=== PATIENT | male | born 1935 | race Caucasian/White ===

== ENCOUNTER 2017-09-25 13:33 | Emergency (ER) | payer MEDICARE ==
--- NOTE | 2017-09-25 13:57 | Emergency Department Record ---
History of Present Illness - General Chief complaint: Male Urogenital Problem Stated complaint: UNABLE TO URINATE Time Seen by Provider: 09/25/17 13:44 Source: Patient, Family Mode of Arrival: Ambulatory Limitations: No limitations - History of Present Illness Initial comments: The patient is here due to having his nuñez catheter changed this afternoon by his home health nurse but since it was placed there has been no urine out just blood. The patient denies any pain or discomfort. He had the catheter placed a month ago by his Urologist in [place] which was due to urine retention. Complaint: Other Onset/Timin -: Hour(s) - Related Data Home Medications Medication Instructions Recorded Confirmed Last Taken Ascorbic Acid [Vitamin C] 1,000 mg PO ASDIR 09/25/17 09/25/17 09/25/17 Aspirin [Adult Low Dose Aspirin EC] 81 mg PO DAILY 09/25/17 09/25/17 09/25/17 Citalopram Hydrobromide [Celexa] 20 mg PO DAILY 09/25/17 09/25/17 09/25/17 Lorazepam [Ativan] 1 mg PO ASDIR 09/25/17 09/25/17 Unknown Metoprolol Tartrate [Lopressor] 12.5 mg PO DAILY 09/25/17 09/25/17 09/25/17 Multivitamin [Multi-Vitamin Daily] 1 each PO DAILY 09/25/17 09/25/17 Unknown Naproxen [Naprosyn] 500 mg PO ASDIR 09/25/17 09/25/17 Unknown Previous Rx's Medication Instructions Recorded Ciprofloxacin HCl [Cipro] 1 tab PO Q12H #14 tab 09/25/17 Allergies Allergy/AdvReac Type Severity Reaction Status Date / Time Opioids - Morphine Analogues AdvReac HYPERSENSIT Verified 09/25/17 14:43 IVITY Review of Systems Constitutional: Denies: Chills, Fever Eyes: Denies: Eye discharge ENT: Denies: Congestion Respiratory: Denies: Cough, Dyspnea Past Medical History - SOCIAL HISTORY Smoking Status: Never smoker Alcohol Use: None Drug Use: None - RESPIRATORY Hx Respiratory Disorders: No - CARDIOVASCULAR Hx Cardio Disorders: No - NEURO Hx Neuro Disorders: Yes Hx Dementia: Yes Hx of Neuromuscular Disease: Yes - GI Hx GI Disorders: No Physical Exam - General General Appearance: Alert, Cooperative, No acute distress - Head Head exam: Atraumatic, Normocephalic - Eye Eye exam: Normal appearance, PERRL - Neck Neck exam: Normal inspection, Full ROM. negative: Tenderness - Respiratory Respiratory exam: Normal lung sounds bilaterally. negative: Respiratory distress - Cardiovascular Cardiovascular Exam: Regular rate, Normal rhythm, Normal heart sounds - GI/Abdominal GI/Abdominal exam: Soft, Normal bowel sounds. negative: Tenderness - Extremities Extremities exam: Normal inspection, Full ROM, Normal capillary refill. negative: Tenderness - Neurological Neurological exam: Alert. negative: Altered, Motor sensory deficit Course - Reevaluation(s) Reevaluation #1: The patient is doing well at this time. His Nuñez catheter was placed and 800 cc 's of urine was removed. There was some bleeding initially but then it did clear up but was mildly cloudy. Due to the fact the patient has 9% bands on his CBC and bacteria and WBC's in his urine I did elect to treat him with an oral Abx. I did discuss the mild renal insufficiency with the patient's and the need for F/U next week with his Urologist. I also did discuss the case with Dr. Cuellar (Urology) who is ignition expert for the patient's Urologist Dr. Zacarias. He does agree to the plan for discharge and F/U next week. 09/25/17 15:25 Medical Decision Making - Data Complexity MDM Data: Labs Ordered and/or Reviewed - Lab Data Result diagrams: 09/25/17 14:23 09/25/17 14:23 Disposition Disposition: Discharge Clinical Impression: Retention, urine Disposition: Home, Self-Care Condition: (2) Stable Instructions: Urinary Retention in Men (ED) Additional Instructions: Drink plenty of fluids and continue the Cipro as directed. Please see your Urologist next week. Return to the ER for any problems or pain. Please stop the Naprosyn for pain and just use Tylenol. Prescriptions: Ciprofloxacin HCl [Cipro] 1 tab PO Q12H #14 tab Forms: Patient Portal Access Time of Disposition: 15:29 Quality - Quality Measures Quality Measures: N/A - Blood Pressure Screening View Details: Yes Does Patient Have Any of the Following: No Blood Pressure Classification: Normal BP Reading Systolic Measurement: 106 Diastolic Measurement: 58 Screening for High Blood Pressure: < Normal BP, F/U Not Required > [G8783]
[2017-09-25] MEDS: LIDOCAINE UROJECT 10 ML APPL MM ONE (14:10)
[2017-09-25 14:36] LABS: HEMATOCRIT 47.7 % (42.0-52.0); HEMOGLOBIN 16.1 gm/dl (14.0-18.0); MEAN CELL VOLUME 88.2 fl (81-97); MEAN CORPUSCULAR HEMOGLOBIN 29.8 pg (27-33); MEAN CORPUSCULAR HGB CONC 33.8 g/dl (32-36); MEAN PLATELET VOLUME 8.9 fl (7.4-10.4); PLATELET COUNT 246 K/uL (130-400); RED BLOOD COUNT 5.41 M/uL (4.40-5.70); RED CELL DISTRIBUTION WIDTH 13.3 % (11.5-14.5); WHITE BLOOD COUNT W/O DIFF 4.8 K/uL (4.2-12.2)
[2017-09-25 14:45] LABS: CREATININE 1.5 mg/dL (0.7-1.2)
[2017-09-25 14:51] LABS: PLATELET ESTIMATE NORMAL (NORMAL)
[2017-09-25 15:07] LABS: URINE APPEARANCE CLOUDY; URINE BILIRUBIN NEGATIVE (NEGATIVE); URINE BLOOD LARGE (NEGATIVE); URINE COLOR YELLOW; URINE GLUCOSE (UA) NEGATIVE (NEGATIVE); URINE KETONE NEGATIVE (NEGATIVE); URINE LEUKOCYTE ESTERASE LARGE (NEGATIVE); URINE NITRITE NEGATIVE (NEGATIVE); URINE UROBILINOGEN 0.2 E.U./dL (0.20 - 1.00)
[2017-09-25 15:10] LABS: URINE BACTERIA 1+; URINE EPITHELIAL CELLS NONE SEEN (FEW); URINE RBC 21 - 35 (NONE SEEN)
[2017-09-25] MEDS: CIPROFLOXACIN HCL 500 MG TABLET PO ONE (15:22)
== END 2017-09-25 16:08 | disposition home or self-care (01) ==
LOC: ER 13:33
DX: T83.098A Other mechanical complication of other urinary catheter, initial encounter (principal); R33.8 Other retention of urine; R31.0 Gross hematuria; N28.9 Disorder of kidney and ureter, unspecified; F03.90 Unspecified dementia, unspecified severity, without behavioral disturbance, psychotic disturbance, mood disturbance, and anxiety; Y65.8 Other specified misadventures during surgical and medical care; Y73.8 Miscellaneous gastroenterology and urology devices associated with adverse incidents, not elsewhere classified
CPT/HCPCS: 80048; 81001; 85027; 99283

== ENCOUNTER 2017-12-05 02:08 | Emergency (ER) | payer MEDICARE ==
--- NOTE | 2017-12-05 02:33 | Emergency Department Record ---
History of Present Illness - General Chief complaint: Male Urogenital Problem Stated complaint: CATHETER LEAKING/SUPRAPUBIC PAIN Time Seen by Provider: 12/05/17 02:18 Source: Family Mode of Arrival: EMS Limitations: No limitations - History of Present Illness Initial comments: The patient is here due to having a chronic nuñez catheter that has become non- functional last evening. The catheter stopped working and the the patient did develop AP and leaking around the catheter. Per family the patient has severe MS and Dementia and no longer walks or is able to get to the bathroom. He has had some low grade fevers at home recently but none the last few days. MD Complaint: Other Onset/Timin -: Hour(s) Location: Abdomen Severity scale (1-10): 8 Quality: Other Consistency: Constant Indwelling catheter - Related Data Previous Rx's Medication Instructions Recorded Ciprofloxacin HCl [Cipro] 500 mg PO Q12HR #14 tablet 12/05/17 Allergies Allergy/AdvReac Type Severity Reaction Status Date / Time Opioids - Morphine Analogues AdvReac HYPERSENSIT Verified 12/05/17 02:29 IVITY Travel Screening - Travel/Exposure Within Last 30 Days Have you traveled within the last 30 days?: No - Travel Symptoms Symptom Screening: None Review of Systems Constitutional: Denies: Chills, Fever Eyes: Denies: Eye discharge ENT: Denies: Congestion Respiratory: Denies: Cough, Dyspnea Cardiovascular: Denies: Arrhythmia, Chest pain Endocrine: Reports: Fatigue Gastrointestinal: Denies: Abdominal pain, Diarrhea, Nausea, Vomiting Genitourinary: Denies: Dysuria, Hematuria Musculoskeletal: Denies: Back pain Past Medical History - SOCIAL HISTORY Smoking Status: Never smoker - RESPIRATORY Hx Respiratory Disorders: Yes Hx Sleep Apnea: Yes - CARDIOVASCULAR Hx Cardio Disorders: Yes Hx Cardiac Cath: Yes Hx Hypertension: Yes Hx Vascular Disease: Yes - NEURO Hx Neuro Disorders: Yes Hx Dementia: Yes Hx of Neuromuscular Disease: Yes (MS) - GI Hx GI Disorders: No - Hx Genitourinary Disorders: Yes Hx Prostate Problems: Yes - ENDOCRINE Hx Endocrine Disorders: No - MUSCULOSKELETAL Hx Musculoskeletal Disorders: Yes Hx Musculoskeletal Disease: Yes (MS) - PSYCH Hx Psych Problems: No - HEMATOLOGY/ONCOLOGY Hx Hematology/Oncology Disorders: No Family Medical History Any Significant Family History?: Yes Hx Cancer: Father, Brother/Sister Hx Dementia: Brother/Sister Hx Diabetes: Mother, Brother/Sister Hx Heart Disease: Father, Mother, Brother/Sister Hx Kidney Disease: Brother/Sister Physical Exam - General General Appearance: Alert, Cooperative, No acute distress - Head Head exam: Atraumatic, Normocephalic - Eye Eye exam: Normal appearance, PERRL - Neck Neck exam: Normal inspection, Full ROM. negative: Tenderness - Respiratory Respiratory exam: Normal lung sounds bilaterally. negative: Respiratory distress - Cardiovascular Cardiovascular Exam: Regular rate, Normal rhythm, Normal heart sounds - GI/Abdominal GI/Abdominal exam: Soft, Normal bowel sounds. negative: Guarding, Rebound, Rigid, Tenderness - Extremities Extremities exam: Normal inspection - Neurological Neurological exam: Abnormal gait (Chronic.), Alert. negative: Normal gait - Skin Skin exam: negative: Rash Course Vital Signs 12/05/17 02:10 Temperature 98.8 F Pulse Rate 104 H Respiratory 16 Rate Blood Pressure 169/109 Pulse Ox 95 - Reevaluation(s) Reevaluation #1: I did explain the results of the blood and urine to the patient's family. They are to F/U with their PCP next week. 12/05/17 03:24 Medical Decision Making - Data Complexity MDM Data: Labs Ordered and/or Reviewed - Lab Data Result diagrams: 12/05/17 02:46 12/05/17 02:46 Disposition Disposition: Discharge Clinical Impression: Retention, urine Disposition: Home, Self-Care Condition: (2) Stable Instructions: Urinary Retention in Men (ED) Additional Instructions: Please have the patient drink plenty of fluids and take the Cipro as directed. Please see your family doctor next week for recheck and to have the blood sugar and WBC rechecked. Please also try to see the Urologist as previously discussed. Return to the ER for any worsening issues or problems. Prescriptions: Ciprofloxacin HCl [Cipro] 500 mg PO Q12HR #14 tablet Forms: Patient Portal Access Time of Disposition: 03:27 Quality - Quality Measures Quality Measures: N/A - Blood Pressure Screening View Details: Yes Does Patient Have Any of the Following: Active Dx of HTN Blood Pressure Classification: Hypertensive Reading Systolic Measurement: 169 Diastolic Measurement: 109 Screening for High Blood Pressure: Patient Exclusion, Hx of HTN [G9744]
[2017-12-05 02:52] LABS: HEMATOCRIT 45.2 % (42.0-52.0); MEAN CELL VOLUME 83.1 fl (81-97); MEAN CORPUSCULAR HEMOGLOBIN 27.6 pg (27-33); MEAN CORPUSCULAR HGB CONC 33.2 g/dl (32-36); PLATELET COUNT 749 K/uL (130-400); RED BLOOD COUNT 5.44 M/uL (4.40-5.70); WHITE BLOOD COUNT W/O DIFF 15.7 K/uL (4.2-12.2)
[2017-12-05 03:10] LABS: URINE APPEARANCE CLOUDY; URINE BILIRUBIN NEGATIVE (NEGATIVE); URINE BLOOD SMALL (NEGATIVE); URINE COLOR YELLOW; URINE GLUCOSE (UA) NEGATIVE (NEGATIVE); URINE KETONE NEGATIVE (NEGATIVE); URINE LEUKOCYTE ESTERASE SMALL (NEGATIVE); URINE NITRITE POSITIVE (NEGATIVE); URINE PROTEIN TRACE (NEGATIVE)
[2017-12-05 03:11] LABS: ANISOCYTOSIS 1+; PLATELET ESTIMATE INCREASED (NORMAL)
[2017-12-05 03:12] LABS: BLOOD UREA NITROGEN 16 mg/dL (8-23); CREATININE 0.7 mg/dL (0.7-1.2); EST GLOMERULAR FILTRATION RATE > 60 mL/min; GLUCOSE,RANDOM 275 mg/dL (74-109)
[2017-12-05] MEDS ORDERED: CIPROFLOXACIN HCL 500 MG TABLET PO ONE (03:13)
[2017-12-05 03:19] LABS: URINE BACTERIA 4+; URINE EPITHELIAL CELLS NONE SEEN (FEW)
== END 2017-12-05 04:01 | disposition home or self-care (01) ==
LOC: ER 02:08
DX: R33.9 Retention of urine, unspecified (principal); R31.29 Other microscopic hematuria; I10 Essential (primary) hypertension; G35 Multiple sclerosis
CPT/HCPCS: 80048; 81001; 85027; 99283

== ENCOUNTER 2018-10-09 11:42 | Emergency (ER) | payer MEDICARE ==
[2018-10-09 12:27] LABS: ABSOLUTE NEUTROPHIL COUNT 10.77; BASO % 0.2 % (0-6); EOS % 0.2 % (0-6); GRAN % 79.8 % (47-80); HEMOGLOBIN 13.9 gm/dl (14.0-18.0); LYMPH % 8.1 % (16-45); MEAN CELL VOLUME 87.1 fl (81-97); MEAN CORPUSCULAR HEMOGLOBIN 28.8 pg (27-33); MEAN CORPUSCULAR HGB CONC 33.1 g/dl (32-36); MEAN PLATELET VOLUME 9.9 fl (7.4-10.4); MONO % 11.7 % (0-9); PLATELET COUNT 283 K/uL (130-400); RED BLOOD COUNT 4.82 M/uL (4.40-5.70); RED CELL DISTRIBUTION WIDTH 14.9 % (11.5-14.5); WHITE BLOOD COUNT W/O DIFF 13.5 K/uL (4.2-12.2)
[2018-10-09 12:34] LABS: BLOOD UREA NITROGEN 15 mg/dL (8-23); CREATININE 0.9 mg/dL (0.7-1.2); EST GLOMERULAR FILTRATION RATE > 60 mL/min
[2018-10-09 12:35] LABS: TOTAL PROTEIN 6.6 g/dL (6.6-8.7)
[2018-10-09 12:37] LABS: GLUCOSE,RANDOM 179 mg/dL (74-109)
[2018-10-09 12:40] LABS: ALB/GLOB RATIO 0.8 (1.1-1.8); ALBUMIN 2.9 g/dL (4.0-5.0); ALKALINE PHOSPHATASE 243 U/L (40-129); ALT/SGPT 17 U/L (<41); AST/SGOT 19 U/L (10.0-50.0)
[2018-10-09] MEDS ORDERED: LIDOCAINE UROJECT 10 ML APPL MM ONE (12:56)
[2018-10-09 13:24] LABS: URINE APPEARANCE CLOUDY; URINE BILIRUBIN SMALL (NEGATIVE); URINE BLOOD LARGE (NEGATIVE); URINE COLOR RED; URINE GLUCOSE (UA) NEGATIVE (NEGATIVE); URINE KETONE NEGATIVE (NEGATIVE); URINE NITRITE NEGATIVE (NEGATIVE)
[2018-10-09 13:35] LABS: URINE LEUKOCYTE ESTERASE TRACE (NEGATIVE)
[2018-10-09 13:38] LABS: URINE EPITHELIAL CELLS 0 - 2 (FEW)
--- NOTE | 2018-10-09 14:25 | Emergency Department Record ---
History of Present Illness - General Chief Complaint: Altered Mental Status Stated Complaint: CONFUSION/WEAKNESS Time Seen by Provider: 10/09/18 12:14 Source: Patient Mode of Arrival: Stretcher Limitations: No limitations - History of Present Illness Initial Comments: pt has had increased confusion. pt is currently on bactrim for 3 days for a suspected uti. pt has ms and dementia. pt is bedridden MD Complaint: Altered mental status, Confusion Onset/Timin -: Week(s) Severity: Moderate Consistency: Constant Associated Symptoms: Cough - [place] Coma Scale Eye Response: (4) Open spontaneously Motor Response: (6) Obeys commands Verbal Response: (5) Oriented [place] Total: 15 - Related Data Home Medications Medication Instructions Recorded Confirmed Last Taken Multivitamin [Multi-Vitamin Daily] 1 each PO DAILY 10/09/18 10/09/18 10/09/18 Sulfamethoxazole/Trimethoprim 1 tab PO BID 10/09/18 10/09/18 10/09/18 [Bactrim Ds] Allergies Allergy/AdvReac Type Severity Reaction Status Date / Time Opioids - Morphine Analogues AdvReac HYPERSENSIT Verified 12/05/17 02:29 IVITY Travel Screening - Travel/Exposure Within Last 30 Days Have you traveled within the last 30 days?: No - Travel/Exposure Within Last Year Have you traveled outside the [place] in the last year?: No - Additonal Travel Details Have you been exposed to anyone with a communicable illness?: No Review of Systems Reviewed: No additional complaints except as noted below Constitutional: Reports: As per HPI. Denies: Chills, Fever, Malaise, Night sweats, Weakness, Weight change Eyes: Reports: As per HPI. Denies: Eye discharge, Eye pain, Photophobia, Vision change ENT: Reports: As per HPI. Denies: Congestion, Dental pain, Ear pain, Epistaxis, Hearing loss, Throat pain Respiratory: Reports: As per HPI. Denies: Cough, Dyspnea, Hemoptysis, Stridor, Wheezes Cardiovascular: Reports: As per HPI. Denies: Arrhythmia, Chest pain, Dyspnea on exertion, Edema, Murmurs, Orthopnea, Palpitations, Paroxysmal nocturnal dyspnea, Rheumatic Fever, Syncope Endocrine: Reports: As per HPI. Denies: Fatigue, Heat or cold intolerance, Polydipsia, Polyuria Gastrointestinal: Reports: As per HPI. Denies: Abdominal pain, Constipation, Diarrhea, Hematemesis, Hematochezia, Melena, Nausea, Vomiting Genitourinary: Reports: As per HPI. Denies: Dysuria, Frequency, Hematuria, Incontinence, Retention, Testicular pain, Testicular mass, Urgency Musculoskeletal: Reports: As per HPI. Denies: Arthralgia, Back pain, Gout, Joint swelling, Myalgia, Neck pain Skin: Reports: As per HPI. Denies: Bruising, Change in color, Change in hair/nails, Lesions, Pruritus, Rash Neurological: Reports: As per HPI. Denies: Abnormal gait, Confusion, Headache, Numbness, Paresthesias, Seizure, Tingling, Tremors, Vertigo, Weakness Psychiatric: Reports: As per HPI. Denies: Anxiety, Auditory hallucinations, Depression, Homicidal thoughts, Suicidal thoughts, Visual hallucinations Hematological/Lymphatic: Reports: As per HPI. Denies: Anemia, Blood Clots, Easy bleeding, Easy bruising, Swollen glands Past Medical History - SOCIAL HISTORY Smoking Status: Never smoker Alcohol Use: None Drug Use: None - RESPIRATORY Hx Respiratory Disorders: Yes Hx Sleep Apnea: Yes - CARDIOVASCULAR Hx Cardio Disorders: Yes Hx Cardiac Cath: Yes Hx Hypertension: Yes Hx Vascular Disease: Yes - NEURO Hx Neuro Disorders: Yes Hx Dementia: Yes Hx of Neuromuscular Disease: Yes (MS) - GI Hx GI Disorders: No - Hx Genitourinary Disorders: Yes Hx Prostate Problems: Yes - ENDOCRINE Hx Endocrine Disorders: No - MUSCULOSKELETAL Hx Musculoskeletal Disorders: Yes Hx Musculoskeletal Disease: Yes (MS) - PSYCH Hx Psych Problems: No - HEMATOLOGY/ONCOLOGY Hx Hematology/Oncology Disorders: No Family Medical History Any Significant Family History?: No Hx Cancer: Father, Brother/Sister Hx Dementia: Brother/Sister Hx Diabetes: Mother, Brother/Sister Hx Heart Disease: Father, Mother, Brother/Sister Hx Kidney Disease: Brother/Sister Physical Exam - General General Appearance: Alert, Oriented x3, Cooperative, Mild distress - Head Head exam: Normal inspection - Eye Eye exam: Normal appearance, PERRL, EOMI Pupils: Normal accommodation - ENT ENT exam: Normal exam, Mucous membranes moist, Normal external ear exam, Normal orophraynx Ear exam: Normal external inspection. negative: External canal tenderness Nasal Exam: Normal inspection. negative: Discharge, Sinus tenderness Mouth exam: Normal external inspection, Tongue normal Teeth exam: Normal inspection. negative: Dental caries Throat exam: Normal inspection. negative: Tonsillar erythema, Tonsillar exudate - Neck Neck exam: Normal inspection, Full ROM. negative: Tenderness - Respiratory Respiratory exam: Normal lung sounds bilaterally. negative: Respiratory d istress - Cardiovascular Cardiovascular Exam: Regular rate, Normal rhythm, Normal heart sounds - GI/Abdominal GI/Abdominal exam: Soft, Normal bowel sounds. negative: Tenderness - Rectal Rectal exam: Deferred - exam: Deferred - Extremities Extremities exam: Normal inspection, Full ROM, Normal capillary refill. negative: Tenderness - Back Back exam: Reports: Normal inspection, Full ROM. Denies: Muscle spasm, Rash noted, Tenderness - Neurological Neurological exam: Alert, CN II-XII intact, Normal gait, Oriented X3 - Psychiatric Psychiatric exam: Normal affect, Normal mood - Skin Skin exam: Dry, Intact, Normal color, Warm Course Vital Signs 10/09/18 10/09/18 11:48 13:51 Temperature 98.8 F Pulse Rate 74 Pulse Rate [ 74 Pulse Ox Probe] Respiratory 18 16 Rate Blood Pressure 114/74 Blood Pressure 116/75 [Left Arm] Pulse Ox 96 96 - Reevaluation(s) Reevaluation #1: 10/09/18 14:42 pts confusion has improved. uti is no longer apparent. nuñez has been changed. observation offered . pts family states he needs urologist for his prostate but he is bedridden and unable to get to one Reevaluation #2: 10/09/18 14:50 ua has improved, cxr neg for infiltrate Medical Decision Making - Lab Data Result diagrams: 10/09/18 11:23 10/09/18 11:23 Lab Results 10/09/18 10/09/18 10/09/18 Range/Units 11:23 11:23 13:15 WBC 13.5 H (4.2-12.2) K/uL RBC 4.82 (4.40-5.70) M/uL Hgb 13.9 L (14.0-18.0) gm/dl Hct 42.0 (42.0-52.0) % MCV 87.1 (81-97) fl MCH 28.8 (27-33) pg MCHC 33.1 (32-36) g/dl RDW 14.9 H (11.5-14.5) % Plt Count 283 (130-400) K/uL MPV 9.9 (7.4-10.4) fl Gran % 79.8 (47-80) % Lymphocytes % 8.1 L (16-45) % Monocytes % 11.7 H (0-9) % Eosinophils % 0.2 (0-6) % Basophils % 0.2 (0-6) % Absolute Neutrophils 10.77 Sodium 130 L (136-145) mmol/L Potassium 4.3 (3.4-4.5) mmol/L Chloride 94 L (98-107) mmol/L Carbon Dioxide 25.0 (22-29) mmol/L Anion Gap 11.0 (7-16) BUN 15 (8-23) mg/dL Creatinine 0.9 (0.7-1.2) mg/dL Estimated GFR > 60 mL/min Random Glucose 179 H (74-109) mg/dL Calcium 8.7 L (8.8-10.2) mg/dL Total Bilirubin 0.60 (0.2-1.0) mg/dL AST 19 (10.0-50.0) U/L ALT 17 (<41) U/L Alkaline Phosphatase 243 H (40-129) U/L Total Protein 6.6 (6.6-8.7) g/dL Albumin 2.9 L (4.0-5.0) g/dL Globulin 3.7 (1.4-4.8) gm/dL Albumin/Globulin Ratio 0.8 L (1.1-1.8) Urine Color Red H Urine Appearance Cloudy Urine pH 7.0 (5.0-8.0) Ur Specific [place] 1.015 (1.002-1.030) Urine Protein 30 mg/dl H (NEGATIVE) Urine Glucose (UA) Negative (NEGATIVE) Urine Ketones Negative (NEGATIVE) Urine Blood Large H (NEGATIVE) Urine Nitrite Negative (NEGATIVE) Urine Bilirubin Small H (NEGATIVE) Urine Urobilinogen 2.0 H (0.20 - 1.00) E.U./dL Ur Leukocyte Esterase Trace H (NEGATIVE) Urine RBC Too numerous to cnt (NONE SEEN) Urine WBC 3 - 5 (0-2/hpf) Ur Epithelial Cells 0 - 2 (FEW) Disposition Disposition: Discharge Clinical Impression: Transient confusion, Weakness Hematuria Qualifiers: Hematuria type: unspecified type Qualified Code(s): R31.9 - Hematuria, unspecified Disposition: Home, Self-Care Condition: (1) Good Instructions: Altered Mental Status (ED), Hematuria (ED) Additional Instructions: follow up with family doctor and with urology. return sooner if worse. continue antibiotics Forms: Patient Portal Access Quality - Quality Measures Quality Measures: N/A - Blood Pressure Screening Does Patient Have Any of the Following: No Blood Pressure Classification: Normal BP Reading Systolic Measurement: 114 Diastolic Measurement: 74 Screening for High Blood Pressure: < Normal BP, F/U Not Required > [G8783]
--- NOTE | 2018-10-10 23:28 | RADIOLOGY REPORT ---
EXAM: CHEST 2 VIEWS HISTORY: PRODUCTIVE COUGH FOR TWO WEEKS. TECHNIQUE: Upright AP and lateral views of the chest. COMPARISON: None. FINDINGS: There is moderate to marked elevation of the right hemidiaphragm, which can be seen with diaphragmatic paralysis. There is associated compressive atelectasis of the right lung base. No definite lung consolidation or costophrenic angle blunting. The heart is nonenlarged and the pulmonary vasculature is nondilated. There are degenerative changes scattered within the visualized spine. IMPRESSION: 1. MODERATE TO MARKED ELEVATION OF THE RIGHT HEMIDIAPHRAGM WITH PRESUMED ADJACENT COMPRESSIVE ATELECTASIS. NO DEFINITE LUNG CONSOLIDATION NOR PNEUMOTHORAX. 2. NOT MENTIONED ABOVE IS QUESTIONABLE THICKENING OF A MAJOR FISSURE SUPERIORLY, LIKELY ON THE RIGHT. JOB NUMBER: [id number] MTDD
== END 2018-10-09 14:58 | disposition home or self-care (01) ==
LOC: ER 11:42
DX: R53.1 Weakness (principal); R31.9 Hematuria, unspecified; R51 Headache; R41.0 Disorientation, unspecified; G30.9 Alzheimer's disease, unspecified; F02.80 Dementia in other diseases classified elsewhere, unspecified severity, without behavioral disturbance, psychotic disturbance, mood disturbance, and anxiety
CPT/HCPCS: 51702; 71046; 80053; 81001; 85025; 99284; 99285